=== PATIENT | female | born 1985 | race Caucasian/White ===

== ENCOUNTER 2019-06-08 18:04 | Emergency (ER) | payer BC, SELFPAY ==
[2019-06-08 18:05] VITALS: BP 175/92; PULSE 109; RESP 18; TEMP 36.6; O2SAT 98; BMI 46.5
[2019-06-08] MEDS: Ketorolac 15 MG/ML Vial IV (18:25)
[2019-06-08] MEDS: morphine 8 MG/ML Syringe IV (18:25)
--- NOTE | 2019-06-08 18:29 | ED.VIS.BACK ---
History of Present Illness Chief Complaint: Back Informant: Patient Onset: Days Context: Sudden Onset Injury: Lifting, Twisting, Bending Timing: Continuous Quality: Sharp, Throbbing Location: Lumbar, Buttock, Right Leg Current Severity: Severe Maximum Severity: Severe Worsened by: improves with: Movement, Ambulation, Bending, Lifting Relieved by: Nothing Associated Symptoms: - - She reports radicular pain posterior right lower extremity, she denies fever chills. She denies abdominal pain. She denies bowel bladder dysfunction. She denies urinary tract symptoms. She denies saddle paresthesia anesthesia. She denies foot drop. Denies buckling of her knees going up or down steps. Narrative: Patient is a 33-year-old woman with no prior history of back problems. She presents with back pain after going to the gym. She states she had not gone to the gym for several days because of injury to her back. A day or 2 after going to the gym she developed back pain. She took anti-inflammatory with improvement. She apparently shoveled the snow. The next morning she has significant back pain. She felt better and went out with her . She reports the pain is worse. She has had increased pain after near fall and vomiting. Pain is low lysed to the lower back greater on the right than left. She has no symptoms of claudication. Prior similar symptoms: No Recent Illness/Hospitalization: No - Past Medical History (1) No significant past medical history Status: Acute Past Medical History - Allergies and Home Meds Allergies/Adverse Reactions: Allergies cefaclor [From Ceclor] Allergy (Verified 07/19/14 14:14) Unknown amoxicillin trihydrate [From Augmentin] Adverse Reaction (Verified 07/19/14 14:14) Vomiting potassium clavulanate [From Augmentin] Adverse Reaction (Verified 07/19/14 14:14) Vomiting Primary Care Physician: Dmitry Montenegro, MIKE-C [Primary Care Provider] - Prior records reviewed: Yes Surgical History: noncontributory Lives: Spouse/ Significant Other Smoking Status: Never smoker Alcohol: None Drugs: None Review of Systems General: Denies: Chills, Fever, Malaise, Subjective, Sweats Cardiovascular: Denies: Chest pain, Palpitations Respiratory: Denies: Dyspnea, Cough, Dyspnea on exertion Gastrointestinal: Reports: Nausea, Vomiting - She reports nausea vomiting after having severe pain. This was associated with near syncopal episode.. Denies: Abdominal pain, Diarrhea, Melena, Hematochezia Genitourinary: Denies: Dysuria, Hematuria, Frequency Musculoskeletal: Reports: Back pain. Denies: Myalgias, Arthralgias, Neck pain, Swelling, Extremity Pain, -, - Skin: Denies: Rash, Wounds Neurological: Denies: Headache, Weakness, Parasthesia, Numbness, -, - Hematologic: Denies: Easy bruising, Easy bleeding Physical Exam Vital Signs/Narrative: Vital Signs Temp Pulse Resp BP Pulse Ox 06/08/19 18:05 97.8 F 109 H 18 175/92 H 98 Inital Vital Signs reviewed: Yes General: Well nourished, Well developed, Obese, - - Patient appears in discomfort. Head: Normocephalic, Atraumatic Eyes: Perrl, EOMI. Negative for: Pale conjunctiva, Scleral icterus ENT: Moist mucous membranes, No rhinorrhea Neck: Supple, Nontender, No lymphadenopathy, No JVD Cardiovascular: Regular rate, Regular rhythm, No murmurs, Normal S1, Normal S2 Respiratory: No distress, CTA bilaterally, Chest nontender Abdomen: Soft, Nontender, Nondistended, Normal bowel sounds Back: Normal Inspection, Paraspinal Tenderness, Negative SLR - Right, Negative SLR - Left, - - String sign is negative.. Negative for: Nontender, Surgical Scar, Spinal tenderness, CVA tenderness Extremeties: Nontender, No edema, Strong Pulses, - - There is no asymmetry, swelling, discoloration, leg vein distention, palpable cords or tenderness along the distribution of the deep venous system. Skin: Normal color, Trauma Neuro: Alert, Oriented, Normal Strength, Normal Sensation, Normal DTR, Normal Reflexes, Normal Cerebellar, - - EHL is intact bilaterally. Able to walk on heels and toes. Normal perianal sensation.. Negative for: Normal Gait Reflexes: Right Patellar, Right Achilles, Left Patellar, Left Achilles. Negative for: Right Clonus, Right Babinski, Left Clonus, Left Babinski Psychological: Normal affect, Normal Mood Diagnostic/Tx/Re-eval - Medical Decision Making Patient's history and physical exam is consistent with muscle skeletal low back pain. She was treated with IV Toradol and morphine. Formed at 05/08/2002 the patient feels better. Plan is to discharge to home ED Disposition - Plan for ED Patient: Disposition: Home or Assisted Living Diagnosis: Acute low back pain without sciatica Instructions: BACK PAIN (Acute or Chronic) Prescriptions: Hydrocodone Bitart/Apap 5-325 [[place] 5MG-325MG] 1 tab PO Q6H PRN PRN 3 Days #10 tab PRN Reason: Pain Prescription Printed Referrals: Dmitry Montenegro, [employer] [Primary Care Provider] - 1 Week if not improving Additional Instructions: Take 2 Aleve every 12 hours. Apply ice to lower back 20 to 30 minutes at a time 6-8 times a day. Do not apply heat. This will make your pain worse. Avoid activity that causes you pain.
[2019-06-08 19:17] VITALS: BP 143/75; PULSE 82; RESP 16; O2SAT 99
== END 2019-06-08 19:19 | disposition home or self-care (01) ==
PROVIDERS: Emergency Provider Emergency Medicine; PCP Nurse Practitioner Family
DX: M54.5 Low back pain (principal); R55 Syncope and collapse; E66.9 Obesity, unspecified
CPT/HCPCS: 96374; 96375; 99283; A4216